=== PATIENT | female | born 1985 | race Caucasian/White ===

== ENCOUNTER 2019-02-22 15:51 | Inpatient (IN) | payer OTHER ==
[~2019-02-22] VITALS: Ht 157.5 cm; Wt 59.1 kg
[2019-02-22] MEDS ORDERED: ONDANSETRON HCL 4 MG/2 ML VIAL IVP PRN (19:30)
[2019-02-22] MEDS ORDERED: ACETAMINOPHEN 325 MG TABLET PO PRN (19:30)
[2019-02-22] MEDS ORDERED: 0.9% SODIUM CHLORIDE 10 ML SYRINGE IVP PRN (19:30)
[2019-02-22 20:10] VITALS: BP 126/75
[2019-02-22 23:51] VITALS: BP 101/68
[2019-02-23 04:00] VITALS: BP 105/93
[2019-02-23 08:03] VITALS: BP 107/78
[2019-02-23 11:30] VITALS: BP 123/55
[2019-02-23 15:44] VITALS: BP 118/76
[2019-02-23 19:52] LABS: APPEARANCE,URINE CLEAR (CLEAR); BILIRUBIN,URINE NEGATIVE (NEGATIVE); GLUCOSE, URINE (UA) NEGATIVE (NEGATIVE); KETONES,URINE NEGATIVE (NEGATIVE); LEUKOCYTE ESTERASE ,URINE NEGATIVE (NEGATIVE); NITRATE,URINE NEGATIVE (NEGATIVE); OCCULT BLOOD,URINE NEGATIVE (NEGATIVE); PH,URINE 6.5 (5.0-8.0); PROTEIN,URINE NEGATIVE (NEGATIVE)
== END 2019-02-23 19:10 | DRG 885 ==
LOC: EMS 15:52 → 6S 20:05
PROVIDERS: ADMIT Internal Medicine; ATTEND Internal Medicine
DX: F29 Unspecified psychosis not due to a substance or known physiological condition (principal); R45.851 Suicidal ideations; F15.20 Other stimulant dependence, uncomplicated; F17.210 Nicotine dependence, cigarettes, uncomplicated; Z59.0 Homelessness

== ENCOUNTER 2019-02-24 13:35 | Inpatient (IN) | payer OTHER ==
[~2019-02-24] VITALS: Ht 157.5 cm; Wt 63.0 kg
[2019-02-24] MEDS ORDERED: ACETAMINOPHEN 325 MG TABLET PO PRN (14:15)
[2019-02-24 15:54] VITALS: BP 121/80
[2019-02-24 19:52] VITALS: BP 106/92
[2019-02-25 00:15] VITALS: BP 108/59
[2019-02-25] MEDS ORDERED: OxyCODONE HCL/ACETAMINOPHEN 5-325 MG TABLET PO PRN ×2 (01:30)
[2019-02-25] MEDS ORDERED: ONDANSETRON HCL 4 MG/2 ML VIAL IVP PRN (01:30)
[2019-02-25] MEDS ORDERED: 0.9% SODIUM CHLORIDE 10 ML SYRINGE IVP PRN (01:30)
[2019-02-25 05:11] VITALS: BP 106/52
[2019-02-25 07:50] VITALS: BP 95/64
[2019-02-25] MEDS ORDERED: DOCUSATE SODIUM 100 MG CAPSULE PO SCH (09:00)
[2019-02-25 12:41] VITALS: BP 116/64
== END 2019-02-25 18:47 | DRG 881 ==
LOC: EMS 13:36 → 6S 14:12
PROVIDERS: ADMIT Internal Medicine; ATTEND Internal Medicine
DX: F32.9 Major depressive disorder, single episode, unspecified (principal); R45.851 Suicidal ideations; F19.10 Other psychoactive substance abuse, uncomplicated; F17.210 Nicotine dependence, cigarettes, uncomplicated; F15.10 Other stimulant abuse, uncomplicated; Z59.0 Homelessness; Z76.5 Malingerer [conscious simulation]

== ENCOUNTER 2019-10-02 14:03 | Inpatient (IN) | payer OTHER ==
[~2019-10-02] VITALS: Ht 157.5 cm; Wt 64.5 kg
[2019-10-02] MEDS ORDERED: AZITHROMYCIN 500 MG TABLET PO ONE (14:45)
[2019-10-02] MEDS ORDERED: MetroNIDAZOLE 500 MG TABLET PO ONE (14:45)
[2019-10-02] MEDS ORDERED: CefTRIAXone SODIUM 1 GM/VIAL IM ONE (14:45)
[2019-10-02 15:23] LABS: BASOPHILS % (AUTO) 0.2 % (0.0-2.0); EOSINOPHILS % (AUTO) 0.5 % (1.0-6.0); HEMATOCRIT 44.5 % (36-46); HEMOGLOBIN 14.7 g/dL (12.0-16.0); LYMPHOCYTES # (AUTO) 2.1 K/uL (1.0-4.8); LYMPHOCYTES % (AUTO) 19.8 % (22.0-44.0); MEAN CORPUSCULAR HEMOGLOBIN 29.3 pg (26.0-34.0); MEAN CORPUSCULAR HGB CONC 33.1 G/dL (31.0-37.0); MEAN CORPUSCULAR VOLUME 89 fL (80-100); MONOCYTES # (AUTO) 0.5 K/uL (0.1-1.0); MONOCYTES % (AUTO) 4.4 % (2.0-9.0); NEUTROPHILS % (AUTO) 75.1 % (40.0-70.0); PLATELET COUNT (AUTO) 372 K/uL (150-450); RED BLOOD CELL COUNT(AUTO) 5.03 MIL/uL (4.00-5.20); RED CELL DISTRIBUTION WIDTH 13.5 % (11.5-14.5)
[2019-10-02 15:37] LABS: ANION GAP 4 mmol/L (8-16); CALCIUM, TOTAL 9.3 mg/dL (8.8-10.5); CARBON DIOXIDE 33 mmol/L (22-29); CHLORIDE 102 mmol/L (98-107); CREATININE 0.67 mg/dL (0.60-1.30); GLOMERULAR FILTR. RATE CALC > 60 mL/min (>60); GLUCOSE,RANDOM 87 mg/dL (70-110); POTASSIUM 4.4 mmol/L (3.5-5.1); SODIUM SERUM 139 mmol/L (136-145); UREA NITROGEN, BLOOD 10 mg/dL (7-18)
[2019-10-02 15:48] LABS: ALANINE AMINOTRANSFERASE 25 U/L (12-78); ALBUMIN 3.5 g/dL (3.4-5.0); ALKALINE PHOSPHATASE 70 U/L (46-116); ASPARTATE AMINOTRANSFERASE 13 U/L (15-37); BILIRUBIN,TOTAL 0.6 mg/dL (0.1-1.0); HCG,QUANTITATIVE 1 mIU/mL (0-6)
[2019-10-02] MEDS ORDERED: ACETAMINOPHEN 325 MG TABLET PO PRN ×2 (16:30→17:00)
[2019-10-02] MEDS ORDERED: 0.9% SODIUM CHLORIDE 10 ML SYRINGE IVP PRN (16:30)
[2019-10-02] MEDS ORDERED: ONDANSETRON HCL 4 MG/2 ML VIAL IVP PRN (16:30)
[2019-10-02] MEDS ORDERED: MAGNESIUM HYDROXIDE SUSPENSION 30 ML UDCUP PO PRN (17:00)
[2019-10-02 19:56] VITALS: BP 100/60
[2019-10-03 04:56] LABS: APPEARANCE,URINE CLOUDY (CLEAR); GLUCOSE, URINE (UA) NEGATIVE (NEGATIVE); KETONES,URINE NEGATIVE (NEGATIVE); LEUKOCYTE ESTERASE ,URINE SMALL (NEGATIVE); NITRATE,URINE POSITIVE (NEGATIVE); OCCULT BLOOD,URINE NEGATIVE (NEGATIVE); PH,URINE 6.5 (5.0-8.0); PROTEIN,URINE NEGATIVE (NEGATIVE)
[2019-10-03 05:00] LABS: BILIRUBIN,URINE PRELIM. POSITIVE (NEGATIVE)
[2019-10-03 05:03] LABS: AMPHET/METH SCREEN,URINE NEGATIVE (NEGATIVE); BARBITURATE SCREEN, URINE NEGATIVE (NEGATIVE); BENZODIAZEPINES SCREEN,URINE NEGATIVE (NEGATIVE); CANNABINOID SCREEN,URINE NEGATIVE (NEGATIVE); METHADONE SCREEN, URINE NEGATIVE (NEGATIVE); OPIATE SCREEN,URINE NEGATIVE (NEGATIVE)
[2019-10-03 05:04] LABS: BACTERIA,URINE Many /HPF (None Seen); RBC,URINE 0-2 /HPF (0-2); SQUAMOUS EPITHELIAL CELL,UR Many /LPF (None Seen); WBC,URINE 26-50 /HPF (0-5); YEAST,URINE None Seen /HPF (None Seen)
[2019-10-03 05:05] LABS: PHENCYCLIDINE SCREEN,URINE NEGATIVE (NEGATIVE)
[2019-10-03 05:13] LABS: COCAINE SCREEN,URINE NEGATIVE (NEGATIVE)
[2019-10-03 05:36] VITALS: BP 90/57
[2019-10-03 07:28] VITALS: BP 102/59
[2019-10-03] MEDS ORDERED: FAMOTIDINE 20 MG TABLET PO SCH ×2 (09:00→21:00)
[2019-10-03] MEDS ORDERED: DENTURE ADHESIVE 68 GM CREAM DT PRN (10:45)
[2019-10-03] MEDS ORDERED: LIDOCAINE/PF 1% 2 ML VIAL IM SCH (13:00)
[2019-10-03] MEDS ORDERED: CefTRIAXone SODIUM 1 GM/VIAL IM SCH (13:00)
[2019-10-03] MEDS ORDERED: CEPH-582 PO (16:21)
[2019-10-03 16:32] VITALS: BP 112/85
[2019-10-03] MEDS ORDERED: LACTOBACILLUS ACIDOPHILUS/BULGARICUS TABLET PO SCH (21:00)
== END 2019-10-03 18:07 | DRG 885 ==
LOC: EMS 14:04 → 6S 16:33
PROVIDERS: ADMIT Internal Medicine; ATTEND Internal Medicine
DX: F29 Unspecified psychosis not due to a substance or known physiological condition (principal); N39.0 Urinary tract infection, site not specified; R45.1 Restlessness and agitation
CPT/HCPCS: 87086; 87491; 87591; G0480; J0696; J3490

== ENCOUNTER 2019-11-11 14:46 | Inpatient (IN) | payer OTHER ==
[~2019-11-11] VITALS: Ht 157.5 cm; Wt 68.2 kg
[~2019-11-11 14:46] MED LIST: CEPH-582 PO
[2019-11-11] MEDS ORDERED: NORG1TAB75 PO (15:07)
[2019-11-11] MEDS ORDERED: ACET-66 PO (15:07)
[2019-11-11 15:41] LABS: BASOPHILS % (AUTO) 0.5 % (0.0-2.0); EOSINOPHILS % (AUTO) 0.7 % (1.0-6.0); HEMATOCRIT 40.8 % (36-46); HEMOGLOBIN 13.8 g/dL (12.0-16.0); LYMPHOCYTES # (AUTO) 2.3 K/uL (1.0-4.8); LYMPHOCYTES % (AUTO) 24.8 % (22.0-44.0); MEAN CORPUSCULAR HEMOGLOBIN 30.3 pg (26.0-34.0); MEAN CORPUSCULAR HGB CONC 33.8 G/dL (31.0-37.0); MEAN CORPUSCULAR VOLUME 90 fL (80-100); MONOCYTES # (AUTO) 0.5 K/uL (0.1-1.0); MONOCYTES % (AUTO) 5.7 % (2.0-9.0); NEUTROPHILS # (AUTO) 6.3 K/uL (1.8-7.7); NEUTROPHILS % (AUTO) 68.3 % (40.0-70.0); PLATELET COUNT (AUTO) 276 K/uL (150-450); RED BLOOD CELL COUNT(AUTO) 4.55 MIL/uL (4.00-5.20); RED CELL DISTRIBUTION WIDTH 14.8 % (11.5-14.5)
[2019-11-11 15:56] LABS: ANION GAP 7 mmol/L (8-16); CALCIUM, TOTAL 9.3 mg/dL (8.8-10.5); CARBON DIOXIDE 29 mmol/L (22-29); CHLORIDE 105 mmol/L (98-107); CREATININE 0.87 mg/dL (0.60-1.30); GLOMERULAR FILTR. RATE CALC > 60 mL/min (>60); GLUCOSE,RANDOM 98 mg/dL (70-110); POTASSIUM 5.1 mmol/L (3.5-5.1); SODIUM SERUM 141 mmol/L (136-145); UREA NITROGEN, BLOOD 18 mg/dL (7-18)
[2019-11-11 16:09] LABS: ALANINE AMINOTRANSFERASE 33 U/L (12-78); ALBUMIN 3.9 g/dL (3.4-5.0); ALKALINE PHOSPHATASE 52 U/L (46-116); ASPARTATE AMINOTRANSFERASE 14 U/L (15-37); BILIRUBIN,TOTAL 0.7 mg/dL (0.1-1.0); HCG,QUANTITATIVE < 1 mIU/mL (0-6); TOTAL PROTEIN, SERUM 7.5 g/dL (6.4-8.2)
[2019-11-11] MEDS ORDERED: 0.9% SODIUM CHLORIDE 10 ML SYRINGE IVP PRN (16:15)
[2019-11-11] MEDS ORDERED: ACETAMINOPHEN 325 MG TABLET PO PRN (16:15)
[2019-11-11] MEDS ORDERED: ONDANSETRON HCL 4 MG/2 ML VIAL IVP PRN (16:15)
[2019-11-11 18:00] VITALS: BP 138/77
[2019-11-11 19:33] VITALS: BP 132/74
[2019-11-11 23:36] VITALS: BP 131/70
[2019-11-12 08:09] VITALS: BP 119/83
[2019-11-12] MEDS ORDERED: MAGNESIUM HYDROXIDE SUSPENSION 30 ML UDCUP PO PRN (11:00)
[2019-11-12] MEDS ORDERED: PETROLATUM,WHITE 28 GM JELLY TP PRN (11:00)
[2019-11-12] MEDS ORDERED: CloNIDine HCL 0.1 MG TABLET PO PRN (11:00)
[2019-11-12] MEDS ORDERED: ONDANSETRON HCL 4 MG TABLET PO PRN (11:00)
[2019-11-12] MEDS ORDERED: LOPERAMIDE HCL 2 MG CAPSULE PO PRN (11:00)
[2019-11-12] MEDS ORDERED: IBUPROFEN 400 MG TABLET PO PRN (11:00)
[2019-11-12] MEDS ORDERED: MAG HYDROX/AL HYDROX/SIMETH ES 30 ML SUSPENSION UDCUP PO PRN (11:00)
[2019-11-12] MEDS ORDERED: GuaiFENesin/D-METHORPHAN [SUGAR-FREE] 200-20MG/10 ML SYRUP UDCUP PO PRN (11:00)
[2019-11-12] MEDS ORDERED: ACETAMINOPHEN 325 MG TABLET PO PRN (11:00)
[2019-11-12] MEDS ORDERED: ALBUTEROL SULFATE HFA 90 MCG/PUFF 8 GM INHALER IH PRN (11:00)
[2019-11-12] MEDS ORDERED: NICOTINE 14 MG/24 HOUR PATCH TD PRN (11:00)
[2019-11-12] MEDS ORDERED: DOCUSATE SODIUM 100 MG CAPSULE PO PRN (11:00)
[2019-11-12 16:12] VITALS: BP 117/75
[2019-11-12 19:24] VITALS: BP 109/85
[2019-11-12] MEDS: LITHIUM CARBONATE 300 MG CAPSULE PO SCH (20:04)
[2019-11-13 05:01] VITALS: BP 101/68
[2019-11-13] MEDS: LITHIUM CARBONATE 300 MG CAPSULE PO SCH ×2 (08:01→21:07)
[2019-11-13 08:37] VITALS: BP 108/62
[2019-11-13] MEDS ORDERED: DENTURE ADHESIVE 68 GM CREAM DT PRN (12:45)
[2019-11-13 16:10] VITALS: BP 115/72
[2019-11-13 20:44] VITALS: BP 111/79
[2019-11-14 05:45] VITALS: BP 104/72
[2019-11-14 07:34] VITALS: BP 115/60
[2019-11-14] MEDS: LITHIUM CARBONATE 300 MG CAPSULE PO SCH ×2 (08:51→20:13)
[2019-11-14 15:54] VITALS: BP 103/97
[2019-11-14 19:54] VITALS: BP 103/61
[2019-11-15 05:10] VITALS: BP 108/75
[2019-11-15 08:03] VITALS: BP 125/55
[2019-11-15] MEDS: LITHIUM CARBONATE 300 MG CAPSULE PO SCH ×2 (08:11→21:45)
[2019-11-15 15:54] VITALS: BP 107/80
[2019-11-15 20:30] VITALS: BP 144/81
[2019-11-16 08:00] VITALS: BP 105/68
[2019-11-16] MEDS: LITHIUM CARBONATE 300 MG CAPSULE PO SCH ×2 (09:42→21:39)
[2019-11-16 19:30] VITALS: BP 113/71
[2019-11-17 04:36] VITALS: BP 100/47
[2019-11-17] MEDS: LITHIUM CARBONATE 300 MG CAPSULE PO SCH ×2 (08:04→20:30)
[2019-11-17 08:32] VITALS: BP 102/47
[2019-11-17 16:06] VITALS: BP 127/71
[2019-11-17] MEDS ORDERED: LITH300C3 PO (16:25)
[2019-11-17 20:30] VITALS: BP 116/88
== END 2019-11-17 21:10 | DRG 885 ==
LOC: EMS 14:46 → 6S 16:45
PROVIDERS: ADMIT Hospitalist; ATTEND Hospitalist
DX: F31.9 Bipolar disorder, unspecified (principal); R45.851 Suicidal ideations
CPT/HCPCS: 87081; G0480

== ENCOUNTER 2021-06-02 01:41 | Emergency (ER) | payer OTHER ==
[~2021-06-02] VITALS: Ht 170.2 cm; Wt 81.8 kg
[~2021-06-02 01:41] MED LIST changes: -CEPH-582 PO; +LITH300C3 PO; +NORG1TAB75 PO
[2021-06-02 02:40] LABS: APPEARANCE,URINE CLEAR (CLEAR); BILIRUBIN,URINE NEGATIVE (NEGATIVE); GLUCOSE, URINE (UA) NEGATIVE (NEGATIVE); KETONES,URINE NEGATIVE (NEGATIVE); LEUKOCYTE ESTERASE ,URINE NEGATIVE (NEGATIVE); NITRATE,URINE NEGATIVE (NEGATIVE); OCCULT BLOOD,URINE NEGATIVE (NEGATIVE); PH,URINE 6.5 (5.0-8.0); PROTEIN,URINE NEGATIVE (NEGATIVE)
[2021-06-02 04:30] VITALS: BP 135/89
== END 2021-06-02 05:24 | disposition home or self-care (01) ==
LOC: EMS 01:41
DX: N76.0 Acute vaginitis (principal); F17.210 Nicotine dependence, cigarettes, uncomplicated
CPT/HCPCS: 81003; 84703; 87491; 87591; 99283